=== PATIENT | female | born 1990 | race American Indian/Alaskan Native ===

== ENCOUNTER 2019-07-14 17:30 | Emergency (ER) | payer SELFPAY ==
[2019-07-14 18:11] VITALS: BP 116/88
[2019-07-14 19:11] LABS: Basophils # (Auto) 0.1 K/mm3 (0.0-0.1); Basophils % (Auto) 1.8 % (0.0-1.8); Eosinophils # (Auto) 0.2 K/mm3 (0.0-0.4); Eosinophils % (Auto) 3.3 % (0.0-4.3); Hemoglobin 11.9 gm/dl (10.1-14.3); Lymphocytes # (Auto) 1.9 K/mm3 (1.2-5.4); Lymphocytes % (Auto) 41.5 % (13.4-35.0); Mean Corpuscular HGB Conc 33 % (30-34); Mean Corpuscular Volume 87 fl (79-97); Monocytes # (Auto) 0.3 K/mm3 (0.0-0.8); Monocytes % (Auto) 7.6 % (0.0-7.3); Platelet Count 317 K/mm3 (140-440); Red Blood Count 4.14 M/mm3 (3.65-5.03); Red Cell Distribution Width 15.1 % (13.2-15.2)
--- NOTE | 2019-07-14 20:28 | Emergency Department Report ---
ED Female HPI - General Chief complaint: Vaginal Bleeding Stated complaint: ABD PAIN/BLOOD CLOTS Time Seen by Provider: 07/14/19 19:47 Source: patient Mode of arrival: Ambulatory Limitations: No Limitations - History of Present Illness Initial comments: 28-year-old -[place] female presents to the emergency room complaining of abdominal back pain primary to the right side with heavy vaginal bleeding passing clots. Patient reports that she has been taking ibuprofen without much relief. Patient has an allergy to acetaminophen and Toradol as well as tramadol. Patient reports he has a history of kidney stones. MD Complaint: vaginal bleeding Onset/Timin -: days(s) Location: suprapubic Radiation: R flank Severity: moderate Severity scale (0 -10): 8 Quality: sharp Consistency: constant Improves with: none Worsens with: none Are you Now?: No Associated Symptoms: vaginal bleeding (Recently had a baby 3 weeks ago vaginally with no complications) - Related Data Previous Rx's Medication Instructions Recorded Last Taken Type Ibuprofen [Motrin 600 MG tab] 600 mg PO Q8H PRN #30 tablet 07/14/19 Unknown Rx cephALEXin [Keflex] 500 mg PO Q12HR 10 Days #20 cap 07/14/19 Unknown Rx Allergies Allergy/AdvReac Type Severity Reaction Status Date / Time acetaminophen [From Tylenol] Allergy Hives Verified 07/14/19 18:04 ketorolac [From Toradol] Allergy Hives Verified 07/14/19 18:04 metoclopramide [From Reglan] Allergy Hives Verified 07/14/19 18:05 tramadol [From Ultram] Allergy Hives Verified 07/14/19 18:05 ED Review of Systems ROS: Stated complaint: ABD PAIN/BLOOD CLOTS Other details as noted in HPI ED Past Medical Hx - Past Medical History Previous Medical History?: Yes Hx Kidney Stones: Yes - Surgical History Past Surgical History?: No Hx Cholecystectomy: Yes Additional Surgical History: Hernia repair - Social History Smoking Status: Never Smoker Substance Use Type: None - Medications Home Medications: Home Medications Medication Instructions Recorded Confirmed Last Taken Type Ibuprofen [Motrin 600 MG tab] 600 mg PO Q8H PRN #30 tablet 07/14/19 Unknown Rx cephALEXin [Keflex] 500 mg PO Q12HR 10 Days #20 cap 07/14/19 Unknown Rx ED Physical Exam - General Limitations: No Limitations ED Course Vital Signs 07/14/19 18:05 Temperature 98.1 F Pulse Rate 82 Respiratory 18 Rate Blood Pressure 116/88 O2 Sat by Pulse 97 Oximetry ED Medical Decision Making - Lab Data Result diagrams: 07/14/19 18:49 Critical care attestation.: If time is entered above; I have spent that time in minutes in the direct care of this critically ill patient, excluding procedure time. ED Disposition Clinical Impression: UTI (urinary tract infection) Disposition: TO HOME OR SELFCARE Is pt being admited?: No Does the pt Need Aspirin: No Condition: Stable Instructions: Urinary Tract Infection in Women (ED) Additional Instructions: Urine shows that you have a urinary tract infection. I recommend that you take ibuprofen complete your antibiotics increase your fluid intake and follow-up with your primary care provider. Prescriptions: cephALEXin [Keflex] 500 mg PO Q12HR 10 Days #20 cap Ibuprofen [Motrin 600 MG tab] 600 mg PO Q8H PRN #30 tablet PRN Reason: Pain Referrals: LASHONDA FULLER MD [Primary Care Provider] - 3-5 Days FEROZ JONES MD [Staff Physician] - 3-5 Days
[2019-07-14] MEDS ORDERED: IBUPROFEN 800 MG TAB PO ONE (20:31)
[2019-07-14 20:35] LABS: Bacteria,Urine 1+ /HPF (Negative); Bilirubin,Urine NEG (Negative); Blood,Urine MOD (Negative); Color,Urine Yellow (Yellow); Mucus,Urine FEW /HPF; Protein,Urine <15 mg/dL mg/dL (Negative); Urobilinogen,Urine < 2.0 mg/dL (<2.0)
== END 2019-07-14 21:10 | disposition home or self-care (01) ==
LOC: ED 17:30
DX: N39.0 Urinary tract infection, site not specified (principal); Z79.899 Other long term (current) drug therapy; Z88.8 Allergy status to other drugs, medicaments and biological substances; Z90.49 Acquired absence of other specified parts of digestive tract; Z98.890 Other specified postprocedural states; Z87.442 Personal history of urinary calculi
CPT/HCPCS: 36415; 81001; 84702; 84703; 85025; 86900; 86901; 87086; 99283